=== PATIENT | female | born 1950 | race Caucasian/White ===

== ENCOUNTER 2025-06-06 15:31 | Observation (INO) ==
[2025-06-06 16:44] LABS: Hematocrit (blood only) 39.4 % (37.0-47.0); Hemoglobin 13.7 g/dl (12.0-16.0); Mean Corpuscular Hemoglobin 30.6 pg (25.0-34.0); Mean Corpuscular Volume 87.9 fL (80.0-100.0); Platelet Count 112 K/uL (130-400); RDW Standard Deviation 41.9 fL (36.4-46.3); Red Blood Count 4.48 M/uL (4.20-5.40); White Blood Count 25.45 K/ul (4.8-10.8)
[2025-06-06] MEDS: SODIUM CHLORIDE 0.9% 500 ML IV STA (16:49)
[2025-06-06 16:59] LABS: Immature Granulocytes # (auto) 0.56 K/uL (0.01-0.20); Immature Granulocytes % (auto) 2.2 %; Polychromasia 1+
[2025-06-06 17:01] LABS: Alanine Aminotransferase 30.0 U/L (7-52); Albumin Globulin Ratio 1.0 (0.9-2); Alkaline Phosphatase 107.0 U/L (34-104); Anion Gap 8.0 (3-11); Bilirubin,Total 1.1 mg/dl (0.2-1.0); Blood Urea Nitrogen 52.0 mg/dl (6-23); Calcium 8.5 mg/dl (8.6-10.3); Carbon Dioxide 26.0 mmol/L (21-32); Chloride 99.0 mmol/L (98-107); Creatinine Clr Calc Pharmacy 31.6 ml/min; Globulin 3.4 gm/dl (2.5-4.0); Glucose 116.0 mg/dl (70-99(Fasting)); Potassium 4.3 mmol/L (3.5-5.1); Sodium 133.0 mmol/L (136-145); Total Protein 6.7 gm/dl (6.0-8.3)
--- NOTE | 2025-06-06 17:29 | Emergency Department Note ---
Impression & Plan Calculus, ureteral, Kidney stone, Leukocytosis ED Provider Note NAME: SALINA LUTZ AGE: 74 SEX: F : 1950 ARRIVES VIA: Walk-In INFORMANT: Patient ED PROVIDER(S): Gabino Pérez DO CHIEF COMPLAINT: Weakness HPI: Patient is a 74-year-old female who was seen evaluated here on the and diagnosed with a kidney stone. She was discharged as an outpatient. She notes the pain got worse Tuesday into Tuesday and has actually slightly improved today but she notes she is feeling worse. She feels very weak and rundown. ADDITIONAL HISTORY OBTAINED: Per HPI Chronic Medical/Social Conditions Affecting Care: Per HPI PAST MEDICAL HISTORY:See Below PAST SURGICAL HISTORY:See Below FAMILY HISTORY:See Below SOCIAL HISTORY:See Below HOME MEDICATIONS:See Below ALLERGIES:See Below VITALS:See Below PHYSICAL EXAMINATION: GENERAL: Sitting up in bed, alert, well appearing, well nourished, no distress, non-toxic EYE EXAM: normal conjunctiva. OROPHARYNX: no exudate, no erythema, lips, buccal mucosa, and tongue normal and mucous membranes are moist NECK: supple, no nuchal rigidity, no adenopathy, non-tender LUNGS: Clear to auscultation. Normal chest wall mechanics HEART: no murmurs, S1 normal and S2 normal ABDOMEN: abdomen soft, non-tender, normo-active bowel sounds, no masses, no rebound or guarding. SKIN: no rashes and no bruising UPPER EXTREMITIES: upper extremities are grossly normal. LOWER EXTREMITIES: No pitting edema. NEURO EXAM: Normal sensorium, cranial nerves II-XII grossly intact, normal speech, no gross weakness of arms, no gross weakness of legs. MEDICAL DECISION MAKING: Patient is a 74-year-old female who presents ER for the above-stated complaint. IV was established and blood work was obtained. Labs show leukocytosis of 25,000. Platelets slightly low at 112. BMP with a creatinine 1.3. LFTs and T. bili were reassuring. UA consistent with a UTI with nitrate leuks whites. Patient has a recent CT which was reviewed which suggested a distal ureteral stone with hydronephrosis. Based on the patient's presenting symptoms I do feel this consistent with an infected stone. Consulted and discussed with Dr. Eduard Wyman. Patient is currently hemodynamically stable. She was given Rocephin and IV fluids. Discussed case with the hospitalist for further evaluation management treatment. Currently hemodynamically stable and urology's plan is to take her to the OR tomorrow. If she deteriorates they need to be renotified and patient will go to the OR tonight. Consults/Care Managements Discussions: Per MDM Triage Nursing notes reviewed. Limited review of prior medical records performed Vital Signs: reviewed and remarkable for no significant abnormalities Differential diagnosis: Differential diagnoses includes but is not limited to lumbar radiculopathy, kidney stone, muscle strain, facture, cauda equina, mass, and disc herniation. ER treatment provided: See below Diagnostics interpreted by me include EKG and cardiac monitoring as listed below: -Cardiac Monitoring: An order was placed for continuous cardiac monitoring. The monitor shows a rate of 70 with sinus rhythm. -ECG: none -Laboratory studies:Interpreted by me as stated above in MDM and shown below. Imaging studies: Xrays: As interpreted by me:none CTs show: none Procedures:none Critical Care: None Past Med/Surg History Problem List (Updated 06/06/25 @ 20:29 by Gabino Pérez DO) Leukocytosis (Acute) Calculus, ureteral (Acute) Kidney stone (Acute) Social History Smoking Status: Never smoker Preferred Language: Russian Feels Safe at Home: Yes Allergies Allergies Allergy/AdvReac Type Severity Reaction Status Date / Time No Known Allergies Allergy Verified 06/06/25 18:32 Home Meds Home Medications Medication Instructions Recorded Confirmed alendronate 70 mg tablet 70 mg PO WK 06/06/25 06/06/25 bupropion HCl 300 mg 24 hr tablet, 300 mg PO QAM 06/06/25 06/06/25 extended release levothyroxine 112 mcg tablet 112 mcg PO DAILYBB 06/06/25 06/06/25 rosuvastatin 10 mg tablet 10 mg PO DAILY 06/06/25 06/06/25 trazodone 50 mg tablet 50 mg PO HS 06/06/25 06/06/25 Previous Rx's Medication Instructions Recorded ondansetron HCl 4 mg tablet 4 mg PO Q8H PRN nausea and 06/03/25 vomiting 4 days #14 tabs oxycodone-acetaminophen 5 mg-325 1 tab PO Q8H PRN pain #14 tabs 06/03/25 mg tablet (Percocet) tamsulosin 0.4 mg capsule (Flomax) 0.4 mg PO DAILY #14 caps 06/03/25 Results & Data (ED) Vital Signs Vital Signs - 24 hr 06/06/25 15:53 06/06/25 17:22 06/06/25 17:54 Temperature 36.6 C Temperature Source Temporal Artery Scan Pulse Rate 86 76 Pulse Rate [Apical] 72 Pulse Rate from SpO2 Sensor Respiratory Rate 18 18 17 Respiratory Effort / Characteristics Non-Labored Non-Labored Spontaneous Respiratory Depth Normal Normal Respiratory Pattern Regular Blood Pressure 121/81 Blood Pressure [Right Arm] 129/76 Blood Pressure Mean 94 Blood Pressure Mean [Right Arm] 93 Pulse Oximetry 99 98 Oxygen Delivery Method Room Air Room Air Sepsis New/Unexplained Change in Mental Status N/A Sepsis Action Taken by Nursing No Action Required 06/06/25 17:59 06/06/25 18:00 06/06/25 18:24 Temperature Temperature Source Pulse Rate 76 74 Pulse Rate [Apical] Pulse Rate from SpO2 Sensor 74 Respiratory Rate 13 Respiratory Effort / Characteristics Respiratory Depth Respiratory Pattern Blood Pressure 120/72 Blood Pressure [Right Arm] Blood Pressure Mean 95 Blood Pressure Mean [Right Arm] Pulse Oximetry 97 Oxygen Delivery Method Sepsis New/Unexplained Change in Mental Status Sepsis Action Taken by Nursing 06/06/25 18:30 06/06/25 18:30 06/06/25 18:30 Temperature Temperature Source Pulse Rate 77 Pulse Rate [Apical] Pulse Rate from SpO2 Sensor 77 Respiratory Rate 16 Respiratory Effort / Characteristics Respiratory Depth Respiratory Pattern Blood Pressure 130/73 130/73 Blood Pressure [Right Arm] Blood Pressure Mean 76 76 Blood Pressure Mean [Right Arm] Pulse Oximetry 97 Oxygen Delivery Method Sepsis New/Unexplained Change in Mental Status Sepsis Action Taken by Nursing 06/06/25 18:39 06/06/25 19:00 06/06/25 19:00 Temperature Temperature Source Pulse Rate 74 Pulse Rate [Apical] Pulse Rate from SpO2 Sensor 74 Respiratory Rate 12 Respiratory Effort / Characteristics Respiratory Depth Respiratory Pattern Blood Pressure 127/80 127/80 Blood Pressure [Right Arm] Blood Pressure Mean 99 99 Blood Pressure Mean [Right Arm] Pulse Oximetry 97 Oxygen Delivery Method Sepsis New/Unexplained Change in Mental Status Sepsis Action Taken by Nursing Laboratory Data 06/06/25 16:20 06/06/25 16:20 Lab Results 06/06/25 06/06/25 Range/Units 16:20 17:30 WBC 25.45 H (4.8-10.8) K/ul RBC 4.48 (4.20-5.40) M/uL Hgb 13.7 (12.0-16.0) g/dl Hct 39.4 (37.0-47.0) % MCV 87.9 (80.0-100.0) fL MCH 30.6 (25.0-34.0) pg MCHC 34.8 (32.0-36.0) g/dL RDW Std Deviation 41.9 (36.4-46.3) fL RDW Coeff of Francoise 13.0 (11.5-14.5) % Plt Count 112 L (130-400) K/uL MPV 10.5 (9.4-12.4) fL Immature Gran % (Auto) 2.2 % Neut % (Auto) 91.7 % Lymph % (Auto) 1.1 % [place] % (Auto) 4.4 % Eos % (Auto) 0.0 % Baso % (Auto) 0.6 % Neut # (Auto) 23.34 H (1.40-6.50) K/uL Lymph # (Auto) 0.29 L (1.20-3.40) K/uL [place] # (Auto) 1.11 H (0.11-0.59) K/uL Eos # (Auto) 0.00 (0.00-0.50) K/uL Baso # (Auto) 0.15 (0.00-0.20) K/uL Immature Gran # (Auto) 0.56 H (0.01-0.20) K/uL Polychromasia 1+ Echinocytes 1+ Sodium 133 L (136-145) mmol/L Potassium 4.3 (3.5-5.1) mmol/L Chloride 99 (98-107) mmol/L Carbon Dioxide 26 (21-32) mmol/L Anion Gap 8 (3-11) BUN 52 H (6-23) mg/dl Creatinine 1.31 H (0.6-1.2) mg/dl Est Cr Clr Drug Dosing 31.6 ml/min eGFR 43.02 BUN/Creatinine Ratio 39.7 H (10-20) Glucose 116 H (70-99(Fasting)) mg/dl Lactate 1.2 (0.4-2.0) mmol/L Calcium 8.5 L (8.6-10.3) mg/dl Total Bilirubin 1.1 H (0.2-1.0) mg/dl AST 33 (13-39) U/L ALT 30 (7-52) U/L Alkaline Phosphatase 107 H (34-104) U/L Total Protein 6.7 (6.0-8.3) gm/dl Albumin 3.3 L (3.4-5.0) gm/dl Globulin 3.4 (2.5-4.0) gm/dl Albumin/Globulin Ratio 1.0 (0.9-2) Procalcitonin Cancelled Urine Color Yellow Urine Appearance Cloudy A (Clear) Urine pH 6.0 (4.5-7.5) Ur Specific [place] 1.022 (1.000-1.030) Urine Protein 2+ H (Negative) Urine Glucose (UA) Negative (Negative) Urine Ketones 1+ H (Negative) Urine Blood 3+ H (Negative) Urine Nitrite Positive A (Negative) Urine Bilirubin Negative (Negative) Urine Urobilinogen Negative (Negative) Ur Leukocyte Esterase 2+ H (Negative) Urine WBC (Auto) >50 H (0-5) /hpf Urine RBC (Auto) 11-20 H (0-2) /hpf U Hyaline Cast (Auto) 3-5 H (0-2) /lpf U Epithel Cells (Auto) 6-10 H (0-2) /hpf Urine Bacteria (Auto) 4+ H (None Seen) Urine Comment Administered Medications Discontinued Medications Sodium Chloride (Nss) 500 mls @ 999 mls/hr IV .Q31M STA Stop: 06/06/25 16:31 Last Infusion: 06/06/25 18:44 Dose: Infused Documented By: Admin: 06/06/25 16:49 Dose: 999 mls/hr Documented By: MMF Sodium Chloride (Nss) 1,000 mls @ 999 mls/hr IV .Q1H1M ONE Stop: 06/06/25 18:01 Last Infusion: 06/06/25 18:44 Dose: Infused Documented By: Admin: 06/06/25 17:31 Dose: 999 mls/hr Documented By: BS Ceftriaxone Sodium (Rocephin) 2,000 mg in 50 mls @ 100 mls/hr IV NOW STA Stop: 06/06/25 17:55 Last Infusion: 06/06/25 18:44 Dose: Infused Documented By: Admin: 06/06/25 17:32 Dose: 100 mls/hr Documented By: KAREN Ketorolac Tromethamine (Ketorolac Tromethamine 15 Mg/Ml Vial) 15 mg IV NOW ONE Stop: 06/06/25 19:02 Last Admin: 06/06/25 20:13 Dose: 15 mg Documented By: KAREN Discharge Plan Visit Data Chief Complaint: Kidney Stone Stated Complaint: KIDNEY STONE ED Provider: Gabino Pérez Discharge Problem: Calculus, ureteral, Kidney stone, Leukocytosis Condition: Fair Forms Stand Alone Forms: [facility] [employer] Prescriptions Prescriptions: No Action ondansetron HCl 4 mg tablet 4 mg PO Q8H PRN (Reason: nausea and vomiting) 4 Days Qty: 14 0RF tamsulosin [Flomax] 0.4 mg capsule 0.4 mg PO DAILY Qty: 14 0RF oxycodone-acetaminophen [Percocet] 5-325 mg tablet 1 tab PO Q8H PRN (Reason: pain) Qty: 14 0RF trazodone 50 mg tablet 50 mg PO HS alendronate 70 mg tablet 70 mg PO WK Rx Instructions: Tuesdays levothyroxine 112 mcg tablet 112 mcg PO DAILYBB rosuvastatin 10 mg tablet 10 mg PO DAILY bupropion HCl 300 mg tablet extended release 24 hr 300 mg PO QAM Referrals Referrals: Arlene Sosa CRNP [Primary Care Provider] - Discharge Problem: Leukocytosis Qualifiers: Leukocytosis type: unspecified Qualified Code(s): D72.829 - Elevated white blood cell count, unspecified
[2025-06-06 17:30] LABS: Appearance Urine Cloudy (Clear); Bacteria Urine Automated 4+ (None Seen); Glucose Urine UA Negative (Negative); WBC Urine Automated >50 /hpf (0-5)
[2025-06-06] MEDS: SODIUM CHLORIDE 0.9% 1,000 ML IV ONE (17:31)
[2025-06-06] MEDS: cefTRIAXone SODIUM 2,000 MG/50 ML BAG IV STA (17:32)
[2025-06-06] MEDS: KETOROLAC TROMETHAMINE 15 MG/ML VIAL IV ONE (20:13)
--- NOTE | 2025-06-06 20:17 | History & Physical Report ---
Date of Service June 06, 2025 Assessment & Plan (1) Nephrolithiasis: (2) Osteoporosis: (3) Hypothyroidism: (4) Hyperlipidemia: Plan Pt is a 74 yo female presenting to the ED with right abdominal/flank pain. PMX includes Osteoporosis, hypothyroidism, Prior Kidney Stone (20 years ago), Hyperlipidemia, and Depression. Pt is admitted for treatment of Nephrolithiasis. # Nephrolithiasis -Pt with pain 07/26 today in the right quadrants of the abdomen with right flank -CT abdomen/pelvis - Sunday 06/03 was taken showing an obstructing 5 mm stone at the UVJ. -ED visit on 06/03 Percocet, Zofran, flomax given with minor improvement -Urology appointment today advised pt to come to the ED -WBC increased from Tuesday to today 11.11 to 25.45 -Cr elevated from 1.09 to 1.31 on this visit -Ceftriaxone 200mg in 50mls ordered in the ED today -Ketorolac 15 mg ordered -CBC, CMP ordered for AM labs -Ceftriaxone scheduled 18:45 pm 06/07 -Urology Consult ordered for stone at 5mm # Osteoporosis -Continue Alendronate 70 mg # Depression -Continue Bupropion 300 mg and Trazodone 50 mg # Hypothyroidism -Continue Levothyroxine 112 mcg # Hyperlipidemia -Continue Rosuvastatin 10 mg Code: Full Dispo: Med/Surg DVT Prophylaxis: None Admission and Anticipated Discharge Date Admission Date: During face to face encounter, I obtained a history and physical examination, discussed plan of care with patient and answered any questions. I discussed plan of care with Dr. Bustamante I reviewed above note and agree with it except for the following: Patient will be admitted for right kidney hydronephrosis and obstructing calculus of 5 mmm in the right vesicoureteral junction. Patient with signs of SIRS: elevated RR, and leukocytosis. Possible urosepsis. Lactate was normal. will continue rocephin consulted uro. NPO after midnight. History of Present Illness Chief Complaint: kidney stone Primary Care Provider: PADMINI Mcgee Pt is a 74 yo female presenting to the ED with right abdominal/flank pain. PMX includes Osteoporosis, hypothyroidism, Prior Kidney Stone (20 years ago), Hyperlipidemia, and Depression. On Saturday 06/02, pt began having symptoms of pain in the right quadrants of the abdomen and right flank. Pt indicated the pain didn't radiate, but maintained at a 10/10. The pain was constant, described as gnawing pain. Further, there were no aggravating factors. The following day Sunday 06/03, pt came to the ED, at which time CT abdomen/pelvis was taken showing an obstructing 5 mm stone at the UVJ. Pt was stable and treatment was scheduled to be handled on an outpatient basis with Zofran, Percocet, and Flomax. Pt indicates her pain went from a 10/10 to an 8/10 for the next two days, then on 06/06, pt arrived at her scheduled urology appointment, at which time she was encouraged to come to the ED due to pain 10/10 again. Pt has had no difficulty with stool or urinating since the beginning of the pain. Urine has taken on a slight hue of red in the days form Tuesday. She states she has not eaten an ything since Tuesday due to the pain. Pt is admitted for nephrolithiasis. Allergies Allergy/AdvReac Type Severity Reaction Status Date / Time No Known Allergies Allergy Verified 06/06/25 18:32 Home Medications Medication Instructions Recorded Confirmed Type ondansetron HCl 4 mg tablet 4 mg PO Q8H PRN nausea and 06/03/25 06/06/25 Rx vomiting 4 days #14 tabs oxycodone-acetaminophen 5 mg-325 1 tab PO Q8H PRN pain #14 tabs 06/03/25 06/06/25 Rx mg tablet (Percocet) tamsulosin 0.4 mg capsule (Flomax) 0.4 mg PO DAILY #14 caps 06/03/25 06/06/25 Rx alendronate 70 mg tablet 70 mg PO WK 06/06/25 06/06/25 History bupropion HCl 300 mg 24 hr tablet, 300 mg PO QAM 06/06/25 06/06/25 History extended release levothyroxine 112 mcg tablet 112 mcg PO DAILYBB 06/06/25 06/06/25 History rosuvastatin 10 mg tablet 10 mg PO DAILY 06/06/25 06/06/25 History trazodone 50 mg tablet 50 mg PO HS 06/06/25 06/06/25 History Past Med/Surg History Problem List (Updated 06/06/25 @ 21:15 by Demetra Bustamante MD) Hyperlipidemia Hypothyroidism Osteoporosis Nephrolithiasis Leukocytosis (Acute) Calculus, ureteral (Acute) Kidney stone (Acute) Social History Smoking Status: Never smoker Hx Alcohol Use: No Hx Substance Use: No Preferred Language: Sinhala Communication Ability: Effective Conversion Man Required: No Beliefs That Will Affect Care: None Current Living Situation: Spouse Other Information That Helps Us Care for You: No Feels Safe at Home: Yes Safety Concerns: Feels Safe At This Time Assistive Devices: None Review of Systems Review of Systems: All systems reviewed & are unremarkable except as noted in HPI & below Physical Exam Constitutional: WD/WN, vitals as above Eyes: PERRL, conjunctivae normal, anicteric sclerae ENMT: external ear and nose normal, oropharynx normal Neck: trachea midline, no thyromegaly Respiratory: normal respiratory effort, lungs clear to auscultation Cardiovascular: RRR, no murmur, no edema Gastrointestinal (Abdomen): Inspection/Auscultation: abdomen normal to inspection Percussion/Palpation: + guarding Musculoskeletal: no cyanosis or clubbing, extremities motor strength 5/5 Skin: no rashes, warm and dry Psychiatric: A+Ox3, euthymic affect Lymphatic: no cervical or axillary lymphadenopathy Results & Data Results & Data Vital Signs (Past 12 Hours) Vital Signs Temp Pulse Pulse Resp BP BP Pulse Ox 06/06/25 17:59 76 06/06/25 17:22 72 18 129/76 98 06/06/25 15:53 36.6 C 86 18 121/81 99 O2 Del Method 06/06/25 17:59 06/06/25 17:22 Room Air 06/06/25 15:53 Room Air
[2025-06-06] MEDS ORDERED: MELATONIN 3 MG TAB PO PRN (21:08)
[2025-06-06] MEDS ORDERED: POLYETHYLENE (MIRALAX) 17 GM PACK PO PRN (21:08)
[2025-06-06] MEDS ORDERED: ACETAMINOPHEN 325 MG TAB PO PRN (21:08)
[2025-06-06] MEDS ORDERED: MAGNESIUM HYDROXIDE SUSP 30 ML UDC PO PRN (21:08)
[2025-06-06] MEDS ORDERED: MoRPHine SULFATE 2 MG/ML CARP IV PRN ×2 (21:08)
[2025-06-06] MEDS ORDERED: ACETAMINOPHEN 1,000 MG/100 ML VIAL IV PRN (21:08)
[2025-06-06] MEDS ORDERED: ONDANSETRON INJ 2 MG/ML 2 ML VIAL IV PRN (21:08)
[2025-06-06] MEDS ORDERED: ALUMINUM/MAGNESIUM SUSP 30 ML UDC PO PRN (21:08)
[2025-06-06] MEDS ORDERED: ONDANSETRON 4 MG OD TAB PO PRN (21:10)
[2025-06-07] MEDS: LEVOTHYROXINE SODIUM 112 MCG TABLET PO SCH (05:11)
[2025-06-07 07:32] LABS: Hematocrit (blood only) 33.1 % (37.0-47.0); Hemoglobin 11.6 g/dl (12.0-16.0); Mean Corpuscular Hemoglobin 30.2 pg (25.0-34.0); Mean Corpuscular Volume 86.2 fL (80.0-100.0); Platelet Count 102 K/uL (130-400); RDW Standard Deviation 40.6 fL (36.4-46.3); Red Blood Count 3.84 M/uL (4.20-5.40); White Blood Count 17.20 K/ul (4.8-10.8)
[2025-06-07 07:36] LABS: Dohle Bodies 1+; Immature Granulocytes # (auto) 0.85 K/uL (0.01-0.20); Immature Granulocytes % (auto) 4.9 %; Polychromasia 2+; Rouleaux 1+
[2025-06-07 07:38] LABS: Alanine Aminotransferase 20.0 U/L (7-52); Albumin Globulin Ratio 1.0 (0.9-2); Alkaline Phosphatase 83.0 U/L (34-104); Anion Gap 6.0 (3-11); Bilirubin,Total 0.8 mg/dl (0.2-1.0); Blood Urea Nitrogen 31.0 mg/dl (6-23); Calcium 7.4 mg/dl (8.6-10.3); Carbon Dioxide 24.0 mmol/L (21-32); Chloride 106.0 mmol/L (98-107); Creatinine Clr Calc Pharmacy 43.4 ml/min; Globulin 2.5 gm/dl (2.5-4.0); Glucose 101.0 mg/dl (70-99(Fasting)); Potassium 3.4 mmol/L (3.5-5.1); Sodium 136.0 mmol/L (136-145); Total Protein 5.1 gm/dl (6.0-8.3)
--- NOTE | 2025-06-07 07:47 | Billing Data ---
Date of Service June 06, 2025 Coding Level of Care Code 51265 INT INP/OBS CARE
[2025-06-07] MEDS: SODIUM CHLORIDE 0.9% 1,000 ML IV SCH (08:01)
--- NOTE | 2025-06-07 12:32 | Urology Consultation ---
Date of Consultation June 07, 2025 Assessment & Plan (1) Right ureteral calculus: (2) Hydronephrosis: (3) Flank pain: (4) UTI (urinary tract infection): Plan 75yo female admitted with intractable right flank pain and concern for UTI in the setting of an obstructing 5 mm right UVJ stone She is afebrile and hemodynamically stable at present Labs today show WBCs down from 25- 17 today, hemoglobin 11.6, creatinine 0.94 Urine culture pending She is on ceftriaxone We discussed management in the setting of an obstructing stone and concern for infection. We discussed cystoscopy and stent placement. Ureteral stents were discussed as well as postoperative issues and pain management. She is aware a second procedure will be needed for stone treatment. Risks and benefits were discussed. Expected clinical course reviewed. All questions were answered. Will plan to proceed to the OR today for cystoscopy, right retrograde pyelogram, right ureteral stent placement. Risk and benefits were discussed as per consent. Keep NPO. Covered with scheduled IV ceftriaxone. Urology will follow. Attending note: Patient independently assessed, examined, interviewed, and evaluated. Agree with note as above. Patient's vitals and labs were all reviewed. Pertinent values in the HPI and plan section. Imaging was reviewed interpreted by myself. Agree with read. Vitals were reviewed. Discussed findings extensively with patient and family. Reviewed with nurse practitioner as well as consulting physicians/team. Patient's complicated medical and surgical history was reviewed and summarized above. Patient's surgical, medical, social, and family history were all reviewed with pertinent values as above. Discussed patient's current diagnosis as well as concerns and issues. Reviewed different options moving forward. Discussed potential risks and benefits as well as possible options and concerns. Reviewed potential surgical options and interventions. Discussed potential issues and concerns related to intervention. Risk and benefits were discussed extensively with patient and any available family. Discussed potential risks related to anesthesia. Discussed risks of bleeding infection and injury. Patient has obstructing UVJ stone with hydronephrosis. Has been having blood pressure issues. Patient is undergoing close monitoring and assessment. Has previously had issues with stones. Has previously been able to pass stone. No major or severe fever. Recent benefits were thoroughly explored and discussed. Discussed concerns and issues. Discussed possible stone treatment versus stent placement. Discussed need for treatment of stone if only a stent is placed. Risks and benefits discussed at length for procedure. These include bleeding, infection, injury to surrounding tissues or organs, and risks associated with anesthesia. Patient states understanding and agrees to proceed. Will sign consent and schedule. Discussed options for conservative measure and maximum expulsion medical therapy and symptom controlled. Discussed ESWL. Discussed Ureteroscopy with extraction and/or laser lithotripsy. Risks and benefits were discussed. Stone free rates were also discussed as well as possibility of multiple procedures. Ureteral stents were discussed as well as post-operative issues and pain management. All questions were answered. Plan for cystoscopy with right stent placement History of Present Illness Attending Physician: Beck Gross History of Present Illness 74-year-old female who presented to the ED on 06/06 with severe right sided pain. Patient was seen in the ED on 06/03/2025 for right flank pain and was found to have an obstructing 5 mm right ureteral stone. She was discharged home for outpatient management and follow up with urology. She was seen in the urology clinic yesterday 06/06 and reported uncontrolled pain despite taking Percocet, ibuprofen, and Flomax. She also reported subjective fevers at home. Due to her symptoms, it was recommended she proceed to the ED for evaluation. On arrival, she was afebrile and hemodynamically stable. Labs showing leukocytosis of 25.45 and creatinine 1.31. She received IV fluids, Rocephin, and Toradol. She is admitted to medicine service. Patient was seen at bedside this morning. She is awake and resting in bed on arrival. No acute distress. at bedside. Has been NPO. Allergies Allergy/AdvReac Type Severity Reaction Status Date / Time No Known Allergies Allergy Verified 06/06/25 18:32 Home Medications Medication Instructions Recorded Confirmed Type ondansetron HCl 4 mg tablet 4 mg PO Q8H PRN nausea and 06/03/25 06/06/25 Rx vomiting 4 days #14 tabs oxycodone-acetaminophen 5 mg-325 1 tab PO Q8H PRN pain #14 tabs 06/03/25 5 Rx mg tablet (Percocet) tamsulosin 0.4 mg capsule (Flomax) 0.4 mg PO DAILY #14 caps 06/03/25 06/06/25 Rx alendronate 70 mg tablet 70 mg PO WK 06/06/25 06/06/25 History bupropion HCl 300 mg 24 hr tablet, 300 mg PO QAM 06/06/25 06/06/25 History extended release levothyroxine 112 mcg tablet 112 mcg PO DAILYBB 06/06/25 06/06/25 History rosuvastatin 10 mg tablet 10 mg PO DAILY 06/06/25 06/06/25 History trazodone 50 mg tablet 50 mg PO HS 06/06/25 06/06/25 History Patient History Social History Smoking Status: Never smoker Hx Alcohol Use: No Hx Substance Use: No Preferred Language: Croatian Communication Ability: Effective 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 Acute illness HEENT: Normocephalic Atraumatic. Inspection normal. Cranial Nerves 2-12 Grossly intact. Nares are clear. Neck is supple. Normal inspection of face. Normal inspection of neck. Neurologic: No deficits on inspection. Baseline for motor function and sensory. Psychologic: Normal affect. Respiratory: Nonlabored. No use of accessory muscles. No tachypnea or dyspnea. Cardiovascular: No tachycardia Skin: [place] and Dry. No rashes or visible lesions. Extremities: Moving without issues. No motor deficits on inspection Lymphatics: No edema Abdomen: Soft Non-distended. No rebound or guarding. Constitutional: no acute distress Respiratory: no respiratory distress and no labored breathing Neurologic: moves all extremities and awake Psychiatric: A+Ox3, euthymic affect Results & Data Vital Signs (Past 12 Hours) Vital Signs Temp Pulse Resp BP Pulse Ox O2 Del Method 06/07/25 07:05 36.8 C 72 18 117/72 96 Room Air PG Care Time/CCT Total # of Minutes Spent Total Time Spent with Patient: Total time spent is greater than 50% in coordination of care (as documented) at patient's floor/unit and/or counseling patient: Coding Level of Care Code 90205 INT INP/OBS CARE 3/75MIN Diagnoses Right ureteral calculus N20.1 Hydronephrosis N13.30 Flank pain R10.9 UTI (urinary tract infection) N39.0
[2025-06-07] MEDS ORDERED: ATROPINE SULFATE 0.1 MG/ML 10ML SYR IV PRN (12:46)
[2025-06-07] MEDS ORDERED: HYDROmorphone INJ 1 MG/ML SYRINGE IV PRN (12:46)
[2025-06-07] MEDS ORDERED: ONDANSETRON INJ 2 MG/ML 2 ML VIAL IV PRN (12:46)
--- NOTE | 2025-06-07 12:46 | Anesthesiology Consultation ---
Date of Service June 07, 2025 Assessment & Plan ASA ASA2 Proposed Anesthesia Anesthesia Type: General Risk / Benefits Reviewed With: PT / POA / Parent / Guardian, Accepts Plan and Informed Consent Obtained History Surgery Operation Date: 06/07/25 12:20 Proposed Procedures p Cystoscopy, Right Retrograde Pyelogram, Right Ureteral Stent Placement - Justyn Givens MD Height/Weight Height: 5 ft 3 in Weight: 53 kg Allergies Allergy/AdvReac Type Severity Reaction Status Date / Time No Known Allergies Allergy Verified 06/06/25 18:32 Medications Home Medications Medication Instructions Recorded Confirmed Last Taken ondansetron HCl 4 mg tablet 4 mg PO Q8H PRN nausea and 06/03/25 06/06/25 06/06/25 vomiting 4 days #14 tabs oxycodone-acetaminophen 5 mg-325 1 tab PO Q8H PRN pain #14 tabs 06/03/25 06/06/25 06/06/25 mg tablet (Percocet) tamsulosin 0.4 mg capsule (Flomax) 0.4 mg PO DAILY #14 caps 06/03/25 06/06/25 06/06/25 alendronate 70 mg tablet 70 mg PO WK 06/06/25 06/06/25 05/28/25 bupropion HCl 300 mg 24 hr tablet, 300 mg PO QAM 06/06/25 06/06/25 06/06/25 extended release levothyroxine 112 mcg tablet 112 mcg PO DAILYBB 06/06/25 06/06/25 06/06/25 rosuvastatin 10 mg tablet 10 mg PO DAILY 06/06/25 06/06/25 Unknown trazodone 50 mg tablet 50 mg PO HS 06/06/25 06/06/25 06/05/25 Active Medications Generic Name Dose Route Start Last Admin Trade Name Freq PRN Reason Stop Dose Admin Sodium Chloride 1,000 mls @ 80 mls/hr 06/07/25 07:30 06/07/25 08:01 Nss IV 06/10/25 07:29 80 mls/hr .[id number] ALVA Administration Levothyroxine Sodium 112 mcg 06/07/25 06:30 06/07/25 05:11 Levothyroxine Sodium 112 Mcg Tablet PO 07/07/25 06:29 Not Given DAILYBB ALVA Trazodone HCl 50 mg 06/06/25 21:08 06/06/25 21:36 Trazodone Hcl 50 Mg Tab PO 07/06/25 21:07 50 mg HS ALVA Administration NPO Date Last Intake of Fluids: 06/06/25 Time Last Intake of Fluids: 22:00 Date Last Intake of Solids: 06/06/25 Time Last Intake of Solids: 22:00 Exercise / Class Metabolic Activity II 4-5 Yardwork/Stairs/Walk up hill Past Anesthesia History No Hx of Anesthesia Complications and No Family Hx of Anesthesia Complications History of PONV No Hx of PONV and No Hx of Motion Sickness Social History Smoking Status: Never smoker Hx Alcohol Use: No Hx Substance Use: No substance use type: does not use Review of Systems denies fever/cough/ colds/ chest pain/ SOB/ YAMIL denies YAMIL Physical Exam Vital Signs Last Vital Signs Temp 36.9 C 06/07/25 12:23 Pulse 68 06/07/25 12:23 Resp 20 06/07/25 12:23 BP 145/83 H 06/07/25 12:23 Pulse Ox 98 06/07/25 12:23 O2 Del Method Room Air 06/07/25 12:23 ENMT Mouth: no TMJ abnormality and no dentition abnormality Thyromental Distance: > or= 3.5 Finger Breadths Mallampati Class: II Neck neck extension not limited Respiratory normal respiratory effort; no respiratory distress Auscultation: lungs clear to auscultation bilaterally Cardiovascular Rate/Rhythm: regular rate and regular rhythm Neurologic moves all extremities Psychiatric Orientation: alert and oriented x 3 Testing Laboratory Results 06/07/25 06:55 06/07/25 06:55 Urine Color Yellow 06/06/25 16:20 Urine Appearance Cloudy (Clear) A 06/06/25 16:20 Urine pH 6.0 (4.5-7.5) 06/06/25 16:20 Ur Specific [place] 1.022 (1.000-1.030) 06/06/25 16:20 Urine Protein 2+ (Negative) H 06/06/25 16:20 Urine Glucose (UA) Negative (Negative) 06/06/25 16:20 Urine Ketones 1+ (Negative) H 06/06/25 16:20 Urine Nitrite Positive (Negative) A 06/06/25 16:20 Ur Leukocyte Esterase 2+ (Negative) H 06/06/25 16:20 Urine WBC (Auto) >50 /hpf (0-5) H 06/06/25 16:20 Urine RBC (Auto) 11-20 /hpf (0-2) H 06/06/25 16:20 U Hyaline Cast (Auto) 3-5 /lpf (0-2) H 06/06/25 16:20 U Epithel Cells (Auto) 6-10 /hpf (0-2) H 06/06/25 16:20 Urine Bacteria (Auto) 4+ (None Seen) H 06/06/25 16:20
[2025-06-07] MEDS ORDERED: MIDAZOLAM HCL 1 MG/ML 2ML VIAL ONE (13:23)
[2025-06-07] MEDS ORDERED: LIDOCAINE 2% 2 ML VIAL/AMP(20MG/ML) INFIL ONE (13:25)
[2025-06-07] MEDS ORDERED: PROPOFOL IV EMULSION 10 MG/ML 20 ML VIAL IV ONE ×2 (13:25)
[2025-06-07] MEDS ORDERED: PHENYLEPHRINE HCL 10 MG/ML VIAL ONE (13:26)
[2025-06-07] MEDS: CIPROFLOXACIN / D5W 400 MG/200 ML BAG IV SCH (13:33)
--- NOTE | 2025-06-07 14:03 | Operative Report ---
PG Post Operative Report Pre & Post Diagnosis Operation Date: 06/07/25 12:20 Pre-Op Diagnosis: Right Kidney Stone Post-Op Diagnosis: Right Kidney Stone I identified the patient and participated in the time-out.: Yes Procedure Operation Date: 06/07/25 12:20 Actual Procedures Cystoscopy with Right Retrograde Pyelogram, Right Ureteroscopy, Right Ureteral Dilation, and Right Ureteral Stent Placement(Right) - Alexander Garza DO Surgeon Alexander Garza, II, DO [employer] None Estimated Blood Loss 0 Findings Consistent with Post-Op Diagnosis Significant stricture of the distal ureter on the right. No stone identified. Stricture dilated. Cystitis cystica throughout the bladder. Specimens None Drains 4.8 Fr Multilength Anesthesia Type General Complications none Disposition Disposition: Recovery Room Indications Patient with bothersome stones and obstruction. Risks and benefits discussed at length. Description of Procedure Patient was consented and brought back to the operating room. Patient was placed under anesthesia in the supine position and moved to the dorsal lithotomy position. Patient was prepped and draped in the regular sterile fashion. A time out was completed. A 30degree Cystoscope was placed into the bladder and the entire bladder was examined. The UO's were identified. Significant cystitis cystica was seen throughout the bladder. The UO was cannulized with a catheter and a retrograde pyelogram was completed. The ureter was found to be severely dilated/hydronephrotic findings up in the kidney. There was a severe narrowing of the distal ureter which appeared to be likely the stone versus an area of stricture. A wire was then placed. The Rigid ureteroscope was taken into the ureter. No stone was identified however there was a severe stricture of the distal ureter. This was dilated after dilation the scope was able to advance. The scope advanced to the proximal ureter. No mass tumor lesion or other area concern no stone was identified within the ureter up to the proximal ureter. The entire area was once again examined. No residual large fragments or areas of concern were noted. The scope was slowly removed with the wire left in place. Contrast was placed through the scope for a pyelogram to assist in stent placement. The entire ureter was examined as the scope was slowly removed. The area of dilation was inspected. No injury or area of concern. Adequate dilation had been achieved. No obstructions or other areas of concern were noted. With the wire in place, a 4.8 Fr Double J stent was placed. It was confirmed with fluoroscopy. With the stent in place, the bladder was emptied. The scope was removed. The patient was cleaned, aroused from anesthesia, and transferred to the pacu in stable condition having tolerated the procedure well with no complications. I was present and participated in all aspects of the procedure. The patient will be monitored in the PACU until transferred. Plan to maintain stent for 1 to 2 weeks will have patient return to office with plans for repeat imaging to assess possible migration of the stone to the kidney versus possible removal of the stent I attest to the content of the Intraoperative Record and any orders documented therein. Any exceptions are noted below.
--- NOTE | 2025-06-07 14:10 | Anesthesiology Progress Note ---
Date of Service June 07, 2025 Anesthesia Post Procedure Vital Signs Vital Signs: Temp Pulse Pulse Pulse Resp BP BP 06/07/25 12:23 36.9 C 68 20 145/83 H 06/07/25 07:05 36.8 C 72 18 117/72 06/06/25 21:00 36.8 C 80 18 06/06/25 20:30 78 15 06/06/25 19:51 79 15 06/06/25 19:42 79 18 06/06/25 19:36 83 17 06/06/25 19:30 135/72 06/06/25 19:30 135/72 06/06/25 19:24 81 25 H 06/06/25 19:21 84 17 06/06/25 19:18 82 18 06/06/25 19:00 127/80 06/06/25 19:00 127/80 06/06/25 18:39 74 12 06/06/25 18:30 77 16 06/06/25 18:30 130/73 06/06/25 18:30 130/73 06/06/25 18:24 74 13 06/06/25 18:00 120/72 06/06/25 17:59 76 06/06/25 17:54 76 17 06/06/25 17:22 72 18 06/06/25 15:53 36.6 C 86 18 121/81 BP Pulse Ox O2 Del Method 06/07/25 12:23 98 Room Air 06/07/25 07:05 96 Room Air 06/06/25 21:00 128/74 96 Room Air 06/06/25 20:30 97 06/06/25 19:51 06/06/25 19:42 06/06/25 19:36 06/06/25 19:30 06/06/25 19:30 06/06/25 19:24 06/06/25 19:21 06/06/25 19:18 06/06/25 19:00 06/06/25 19:00 06/06/25 18:39 97 06/06/25 18:30 97 06/06/25 18:30 06/06/25 18:30 06/06/25 18:24 97 06/06/25 18:00 06/06/25 17:59 06/06/25 17:54 06/06/25 17:22 129/76 98 Room Air 08/21/25 15:53 99 Room Air Pain Intensity Right Flank: Pain Intensity: 3 Transfer of Care Handoff Completed per policy Notes Mental Status: alert / awake / arousable and participated in evaluation Patient Amnestic to Procedure: Yes Nausea / Vomiting: adequately controlled Pain: adequately controlled Airway Patency, RR, SpO2: stable & adequate BP & HR: stable & adequate Hydration State: stable & adequate Anesthetic Complications: no major complications apparent and Pt Satisfied with anesthetic care
[2025-06-07] MEDS: CIPROFLOXACIN 400MG / 200ML D5W IV ONE (14:18)
[2025-06-07] MEDS: TAMSULOSIN HCL 0.4 MG CAP PO SCH (15:21)
[2025-06-07] MEDS: ROSUVASTATIN CALCIUM 10 MG TAB PO SCH (15:21)
[2025-06-07] MEDS: cefTRIAXone SODIUM 2,000 MG/50 ML BAG IV SCH (16:03)
--- NOTE | 2025-06-07 17:38 | Hospitalist Progress Note ---
Date of Service June 07, 2025 Assessment & Plan (1) Nephrolithiasis: (2) Osteoporosis: (3) Hypothyroidism: (4) Hyperlipidemia: Plan Pt is a 74 yo female presenting to the ED with right abdominal/flank pain. PMX includes Osteoporosis, hypothyroidism, Prior Kidney Stone (20 years ago), Hyperlipidemia, and Depression. Pt is admitted for treatment of Nephrolithiasis. # Nephrolithiasis/UTI Pain resolved after right ureteral stent placement No stone identified. wc downtrending, as patient is clincially feeling better will likely hold repeat labs. Patient is feeling better. Awaiting urine culture continue rocephin anticipate discharge on 06/08 # Osteoporosis -Continue Alendronate 70 mg # Depression -Continue Bupropion 300 mg and Trazodone 50 mg # Hypothyroidism -Continue Levothyroxine 112 mcg # Hyperlipidemia -Continue Rosuvastatin 10 mg Code: Full Dispo: Med/Surg DVT Prophylaxis: None Admission and Anticipated Discharge Date Admission Date: June 06, 2025 Subjective Patient reports feeling better today. Patient has no new complaints, pain has resolved. Physical Exam Constitutional: WD/WN, vitals as above Neck: trachea midline, no thyromegaly Respiratory: normal respiratory effort, lungs clear to auscultation Cardiovascular: RRR, no murmur, no edema Results & Data Results & Data Vital Signs (Past 12 Hours) Vital Signs Temp Pulse Pulse Resp BP BP Pulse Ox 06/07/25 16:50 36.8 C 61 18 125/77 06/07/25 15:52 36.6 C 58 L 18 122/70 06/07/25 15:23 36.4 C L 58 L 16 132/77 96 06/07/25 14:54 36.9 C 61 16 119/71 96 06/07/25 14:35 36.5 C 61 17 119/68 96 06/07/25 14:25 59 L 17 123/71 96 06/07/25 14:15 62 17 122/69 100 06/07/25 14:06 36.8 C 68 17 105/63 100 06/07/25 12:23 36.9 C 68 20 145/83 H 98 06/07/25 07:05 36.8 C 72 18 117/72 96 O2 Del Method O2 Flow Rate 06/07/25 16:50 Room Air 06/07/25 15:52 Room Air 06/07/25 15:23 Room Air 08/22/25 14:54 Room Air 06/07/25 14:35 Room Air 06/07/25 14:25 Room Air 06/07/25 14:15 Oxymask 5 06/07/25 14:06 Oxymask 5 06/07/25 12:23 Room Air 06/07/25 07:05 Room Air PG Care Time/CCT Total # of Minutes Spent Total Time Spent with Patient: Total time spent is greater than 50% in coordination of care (as documented) at patient's floor/unit and/or counseling patient: Coding Level of Care Code 99541 SUB INP/OBS CARE 3/50MIN Diagnoses Nephrolithiasis N20.0 Osteoporosis M81.0 Hypothyroidism E03.9 Hyperlipidemia E78.5
[2025-06-08 04:02] VITALS: PULSE 62; RESP 16
[2025-06-08 07:17] VITALS: BP 127/69; TEMP 99.7; O2SAT 95
--- NOTE | 2025-06-08 07:22 | Fluoroscopy Report ---
INTRAOPERATIVE RADIOGRAPHS CLINICAL HISTORY: Right ureteral stent placement. Fluoro time: 32 seconds Ka,r: 3.55 mGy FINDINGS: 3 spot fluoroscopic views of the right abdomen are correlated with abdominal CT dated 2024. Contrast in the right renal collecting system shows hydronephrosis. The proximal and distal end s of a right ureteral stent are in appropriate position. Cholecystectomy clips are noted. IMPRESSION: Intraoperative images from a right ureteral stent placement procedure as above. Electronically signed by: Skyler Tony M.D. 06/08/2025 7:21 AM
[2025-06-08] MEDS: POTASSIUM CHLORIDE CRTAB 20 MEQ TABCR PO STA (10:26)
--- NOTE | 2025-06-08 12:02 | Discharge Summary ---
Discharge Summary Date of Service June 08, 2025 Principal Dx & Hospital Course #1 = Principal Diagnosis (1) Nephrolithiasis: (2) Osteoporosis: (3) Hypothyroidism: (4) Hyperlipidemia: Plan Pt is a 74 yo female presenting to the ED with right abdominal/flank pain. PMX includes Osteoporosis, hypothyroidism, Prior Kidney Stone (20 years ago), Hyperlipidemia, and Depression. Pt is admitted for treatment of Nephrolithiasis. Pt underwent right ureteral stricture dilation and stent placement on 06/07/25. Pt has significant symptom improvement. UCx showed fluoroquinolone resistant E coli. Pt improved on Ceftriaxone, will d/c on Cefpodoxime 200mg po BID for 9 more days to complete 10 day course. # Nephrolithiasis/UTI Pain resolved after right ureteral stent placement, which will remain in place for 1 to 2 weeks No stone identified. wc downtrending, as patient is clinically feeling better will likely hold repeat labs. UCx shows fluoroquinolone resistant E coli, s/p 1 dose of Ceftriaxone on 06/07, d/c on Cefpodoxime 200mg po BID x9 more days (last dose on 06/16/25) outpatient follow up with Urology for reimaging to determine possible migration of stone to the kidney vs possible stent removal, will cont tamsulosin for now until pt is evaluated by urology # Osteoporosis -Continue Alendronate 70 mg # Depression -Continue Bupropion 300 mg and Trazodone 50 mg # Hypothyroidism -Continue Levothyroxine 112 mcg # Hyperlipidemia -Continue Rosuvastatin 10 mg Admission HPI Per Admitting Provider Pt is a 74 yo female presenting to the ED with right abdominal/flank pain. PMX includes Osteoporosis, hypothyroidism, Prior Kidney Stone (20 years ago), Hyperlipidemia, and Depression. On Saturday 06/02, pt began having symptoms of pain in the right quadrants of the abdomen and right flank. Pt indicated the pain didn't radiate, but maintained at a 10/10. The pain was constant, described as gnawing pain. Further, there were no aggravating factors. The following day Sunday 06/03, pt came to the ED, at which time CT abdomen/pelvis was taken showing an obstructing 5 mm stone at the UVJ. Pt was stable and treatment was scheduled to be handled on an outpatient basis with Zofran, Percocet, and Flomax. Pt indicates her pain went from a 10/10 to an 8/10 for the next two days, then on 06/06, pt arrived at her scheduled urology appointment, at which time she was encouraged to come to the ED due to pain 07/26 again. Pt has had no difficulty with stool or urinating since the beginning of the pain. Urine has taken on a slight hue of red in the days form Tuesday. She states she has not eaten anything since Tuesday due to the pain. Pt is admitted for nephrolithiasis. Discharge Exam Gen: no acute distress, lying in bed comfortable HEENT: NC/AT, MMM Lungs: nonlabored breathing, CTAB CVS: [id number], RRR Abd: nl bowel sounds, soft, NT / ND : no franco Ext: no edema Neuro: AAOx3 Psych: calm, cooperative Discharge Plan Discharge Items Patient Disposition: Home - Self-Care Reason For Visit: KIDNEY STONE Discharge Diagnosis: E coli UTI, Right ureteral stricture Condition on Discharge: Good Activity: Resume your previous activity Non-emergency contact: Primary Care Provider and Urologist Call non-emergency contact if: you have any medication questions, your symptoms worsen, your pain is worsening, your pain is unusual for you and your rectal temperature is above 100.4 Follow-up/Referrals: Jose Wyman MD [Physician] - Arlene Sosa CRNP [Primary Care Provider] - Diet: Regular Addtl Attending Provider Instructions: Follow up with Urology Follow up with PCP Take tylenol for pain Pending Studies at Discharge: No Stand-Alone Forms: My SSN Funding, Smoking Cessation Medications and DC Order Prescriptions: New cefpodoxime 200 mg tablet 200 mg PO BID Qty: 18 0RF Rx Instructions: must administer with a meal/food Continued ondansetron HCl 4 mg tablet 4 mg PO Q8H PRN (Reason: nausea and vomiting) 4 Days Qty: 14 0RF tamsulosin [Flomax] 0.4 mg capsule 0.4 mg PO DAILY Qty: 14 0RF oxycodone-acetaminophen [Percocet] 5-325 mg tablet 1 tab PO Q8H PRN (Reason: pain) Qty: 14 0RF trazodone 50 mg tablet 50 mg PO HS alendronate 70 mg tablet 70 mg PO WK Rx Instructions: Tuesdays levothyroxine 112 mcg tablet 112 mcg PO DAILYBB rosuvastatin 10 mg tablet 10 mg PO DAILY bupropion HCl 300 mg tablet extended release 24 hr 300 mg PO QAM Discharge Orders: Discharge Order (Routine); Ordered 06/08/25 Ordered By: Amanda Arreola Admission Data Admit Date/Time: 06/06/25 19:53 Attending Provider: Amanda Arreola Admit Provider: Demetra Bustamante Primary Care Provider: Arlene Sosa Other Providers: Beck Gross; Jose Wyman Hospital Stay Data Consultations 06/06/25 17:51 ED Decision to Admit Stat 06/06/25 21:08 Consult Urology Routine Procedures Performed Operation Date: 06/07/25 12:20 Actual Procedures p Cystoscopy, Right Retrograde Pyelogram, Right Ureteroscopy, Right Ureteral Dilation, Right Ureteral Stent Placement(Right) - Alexander Garza, Diagnostic Imagining Performed 06/07/25 [place] retrograde includes kub Routine Discharge Instructions Given to Patient (Per Discharging Provider) Follow up with Urology Follow up with PCP Take tylenol for pain Total Time Total Time Spent Total Time Spent (In Minutes): 45 Coding Level of Care Code 70036 INP/OBS DISCH >30 MIN Diagnoses Nephrolithiasis N20.0 Osteoporosis M81.0 Hypothyroidism E03.9 Hyperlipidemia E78.5
[2025-06-11] MEDS ORDERED: ALENDRONATE SODIUM 70 MG TAB PO SCH (07:00)
== END 2025-06-08 13:24 | disposition home or self-care (01) ==
LOC: 3N 15:31 → ED 15:31 → SUATTDRO 19:53 → 3N 20:39